=== PATIENT | female | born 1960 | race Hispanic/Latino ===

== ENCOUNTER 2023-09-29 21:52 | Emergency (ER) | payer OTHER ==
[~2023-09-29] VITALS: Ht 157.5 cm; Wt 67.6 kg
[2023-09-29 23:33] VITALS: BP 151/90; PULSE 69; RESP 20
== END 2023-09-30 04:10 | disposition left against medical advice (07) ==
LOC: EDH 21:52
DX: M79.89 Other specified soft tissue disorders (principal); Z53.21 Procedure and treatment not carried out due to patient leaving prior to being seen by health care provider
CPT/HCPCS: 99281